=== PATIENT | male | born 1945 ===

== ENCOUNTER 2024-11-03 14:55 | Inpatient (IN) | payer MEDICARE ==
[~2024-11-03 14:55] MED LIST: Iopamidol-370 76% 500 ML MDV (1 ML CHARGE) ONE
[2024-11-03 16:32] LABS: #Basophils Less than 0.03 10x3/uL (0.0-0.2); %Basophils 0.2 % (0.0-1.0); %Eosinophils 0.9 % (0.0-10.0); %Lymphocytes 18.8 % (21.0-51.0); %Monocytes 6.3 % (0.0-10.0); %Neutrophils 73.6 % (42.0-75.0); Hemoglobin 14.1 g/dL (14.0-18.0); Mean Corpuscular HGB CONC 35.3 g/dL (32.0-36.0); Mean Corpuscular Hemoglobin 32.6 pg (27.0-31.0); Mean Corpuscular Volume 92.6 fL (78.0-98.0); Platelet Count 201 10x3/uL (130-400); RBC Distribution Width 12.4 % (11.5-14.5); Red Blood Cell (RBC) Count 4.32 mill/uL (4.70-6.10)
[2024-11-03 16:48] LABS: ALT (SGPT) 15 U/L (8-55); AST (SGOT) 35 U/L (5-34); Albumin 4.1 g/dL (3.4-4.8); Alkaline Phosphatase 75 U/L (40-110); Anion Gap 13 mmol/L (10-20); BUN (Urea Nitrogen) 14 mg/dL (8.4-25.7); Bilirubin, Total 0.4 mg/dL (0.2-1.2); Calc. Creatinine Clearance 0 mL/min (70-130); Calcium 9.5 mg/dL (7.8-10.44); Carbon Dioxide 24 mmol/L (23-31); Chloride 105 mmol/L (98-107); Estimated GFR 77; Globulin 2.8 g/dL (2.4-3.5); Glucose 114 mg/dL (83-110); Protein, Total 6.9 g/dL (5.8-8.1); Sodium 138 mmol/L (136-145)
[2024-11-03] MEDS ORDERED: Lorazepam 2 MG/ML VIAL ONE (16:49)
[2024-11-03] MEDS ORDERED: Acetaminophen 325 MG TAB PO PRN (17:37)
[2024-11-03] MEDS ORDERED: Ondansetron ODT 4 MG TAB PO PRN (17:37)
[2024-11-03] MEDS ORDERED: traMADol HCl 50 MG TAB PO PRN (17:37)
[2024-11-03] MEDS ORDERED: Ondansetron PF 4 MG/2 ML Vial IVP PRN (17:37)
[2024-11-03] MEDS ORDERED: Ketorolac Tromethamine 30 MG (1 mL) VIAL IVP PRN (20:27)
[2024-11-03 20:44] VITALS: BMI 26.3
[2024-11-03] MEDS ORDERED: Famotidine 20 MG TAB PO SCH (21:00)
[2024-11-03] MEDS: ALPRAZolam 0.5 MG TAB PO PRN (21:42)
[2024-11-03] MEDS: HYDROcodone/Acetaminophen 5/325 mg Tablet PO PRN (21:42)
[2024-11-03] MEDS: dilTIAZem CD 120 MG CAP PO SCH (21:42)
[2024-11-04] MEDS: Zolpidem Tartrate 5 MG TAB PO SCH (02:50)
[2024-11-04 05:02] LABS: #Basophils Less than 0.03 10x3/uL (0.0-0.2); %Basophils 0.2 % (0.0-1.0); %Eosinophils 3.3 % (0.0-10.0); %Lymphocytes 37.1 % (21.0-51.0); %Neutrophils 48.2 % (42.0-75.0); Hematocrit 38.7 % (42.0-52.0); Hemoglobin 13.3 g/dL (14.0-18.0); Mean Corpuscular HGB CONC 34.4 g/dL (32.0-36.0); Mean Corpuscular Hemoglobin 32.4 pg (27.0-31.0); Mean Corpuscular Volume 94.2 fL (78.0-98.0); Mean Platelet Volume 9.9 fL (7.4-10.4); Platelet Count 188 10x3/uL (130-400); RBC Distribution Width 12.5 % (11.5-14.5); Red Blood Cell (RBC) Count 4.11 mill/uL (4.70-6.10)
[2024-11-04 05:15] LABS: ALT (SGPT) 12 U/L (8-55); AST (SGOT) 29 U/L (5-34); Albumin 3.8 g/dL (3.4-4.8); Alkaline Phosphatase 72 U/L (40-110); Anion Gap 11 mmol/L (10-20); BUN (Urea Nitrogen) 11 mg/dL (8.4-25.7); Bilirubin, Total 0.4 mg/dL (0.2-1.2); Calc. Creatinine Clearance 77 mL/min (70-130); Carbon Dioxide 26 mmol/L (23-31); Chloride 105 mmol/L (98-107); Estimated GFR 78; Globulin 2.4 g/dL (2.4-3.5); Glucose 92 mg/dL (83-110); Protein, Total 6.2 g/dL (5.8-8.1); Sodium 138 mmol/L (136-145)
[2024-11-04] MEDS: Pantoprazole DR 40 MG TAB PO SCH (08:42)
[2024-11-04] MEDS: BuPROPion XL 150 MG ER.TAB PO SCH (08:42)
[2024-11-04] MEDS: Enoxaparin 40 MG (0.4 mL) SYRINGE SC SCH (08:43)
[2024-11-04] MEDS ORDERED: Atorvastatin Calcium 10 MG TAB PO SCH ×2 (09:00→21:00)
[2024-11-04] MEDS ORDERED: Losartan 25 MG TAB PO SCH ×2 (09:00→21:00)
[2024-11-04] MEDS ORDERED: Finasteride 5 MG TAB PO SCH ×2 (09:00→21:00)
[2024-11-04] MEDS ORDERED: Magnevist 469MG/ML 20 ML VIAL ONE ×2 (10:18)
[2024-11-04 13:17] LABS: Immunoglob - A (Total IgA) 167 mg/dL (101-645); Immunoglob - G (Total IgG) 888 mg/dL (540-1822); Immunoglob - M (Total IgM) 146 mg/dL (22-240)
[2024-11-04 16:21] VITALS: BP 136/71; TEMP 98.3
[2024-11-07 17:13] LABS: IFE-Serum Interpretation Note: (.); IgA - Total IgA (Sendout) 162 mg/dL (61-437); Immunoglobulin - G (Sendout) 852 mg/dL (603-1613); Immunoglobulin - M (Sendout) 152 mg/dL (15-143)
[2024-11-08 14:14] LABS: A/G Ratio 1.6 (0.7-1.7); Albumin 3.8 g/dL (2.9-4.4); Alpha 1 0.2 g/dL (0.0-0.4); Alpha 2 0.5 g/dL (0.4-1.0); Beta 0.8 g/dL (0.7-1.3); Gamma 0.9 g/dL (0.4-1.8); Globulin, Total 2.4 g/dL (2.2-3.9); M-Spike Not Observed g/dL (Not Observed)
== END 2024-11-04 18:27 | disposition home or self-care (01) | DRG 566 ==
LOC: ERS 14:55 → SURG A 17:40 → OBSVTOIN 11-04 10:20
PROVIDERS: ADMIT Internal Medicine; ATTEND Family Medicine
DX: D49.2 Neoplasm of unspecified behavior of bone, soft tissue, and skin (principal); G89.29 Other chronic pain; M54.2 Cervicalgia; R91.1 Solitary pulmonary nodule; N28.1 Cyst of kidney, acquired; M48.02 Spinal stenosis, cervical region; I10 Essential (primary) hypertension; K21.9 Gastro-esophageal reflux disease without esophagitis; N40.0 Benign prostatic hyperplasia without lower urinary tract symptoms; F41.9 Anxiety disorder, unspecified; G47.00 Insomnia, unspecified; E78.00 Pure hypercholesterolemia, unspecified; Z88.0 Allergy status to penicillin; Z88.5 Allergy status to narcotic agent; Z90.49 Acquired absence of other specified parts of digestive tract; Z79.899 Other long term (current) drug therapy
CPT/HCPCS: 36415; 71270; 72156; 72157; 74178; 80053; 83615; 84155; 84165; 85025; 86141; 86334; J1650; J2060